=== PATIENT | female | born 1950 | race Caucasian/White ===

== ENCOUNTER 2018-10-02 07:50 | Day surgery (SDC) | payer OTHER, MEDICARE ==
[2018-09-26 14:28] VITALS: BMI 23.6
--- NOTE | 2018-09-28 10:51 | HP ---
Admitting History and Physical - Primary Care Physician PCP: Neville Das - Admission Chief Complaint: right breast cancer History of Present Illness: 68 yeqar old nulliparous postmenapausal Nigerien female with + BRIP1 mutation and H/O left breast cancer S/P wide excision and ANDX at age 50 in [facility]. Pathology showed IDC 1+/11 nodes She received chemotherapy ,RT and tamoxifen. showed new right breast mass 7 mm at 1:00 8 cm FN. US core bx 07/2018 at [facility] showed IDC ER+/MN weakly+ HER2+. Breast MRI showed loclized right breast cancer at 12:00 and no suspicious adenopathy. History Source: Patient Limitations to Obtaining History: No Limitations - Past Medical History ...: No Additional Past Medical History: Left breast cancer 2000 - Past Surgical History Past Surgical History: Yes: Hysterectomy (TAHBSO fibroids at age 46) Additional Past Surgical History: left breast Wide Excision 2.6 cm IDC 1/11 positive node , CHEMORTHERAPY, RT AND TAMOXIFEN 5 YRS. - Smoking History Smoking history: Never smoked Have you smoked in the past 12 months: No - Alcohol/Substance Use Hx Alcohol Use: No Home Medications - Allergies Allergies/Adverse Reactions: Allergies Allergy/AdvReac Type Severity Reaction Status Date / Time Latex, Natural Rubber Allergy Intermediate Rash Verified 09/26/18 14:18 Penicillins Allergy Unknown Verified 09/26/18 14:18 - Home Medications Home Medications: Ambulatory Orders NK [No Known Home Medication] 09/26/18 Family Disease History - Family Disease History Family Disease History: CA: Father (renal cell ca 69), Sister (breast ca 60) Other Family History: pat aunt breast cancer Problem List - Problems (1) Breast cancer, right Code(s): C50.911 - MALIGNANT NEOPLASM OF UNSP SITE OF RIGHT FEMALE BREAST Qualifiers: Breast location: upper inner quadrant of breast Estrogen receptor status: positive Patient sex: female Qualified Code(s): C50.211 - Malignant neoplasm of upper-inner quadrant of right female breast; Z17.0 - Estrogen receptor positive status [ER+]
[~2018-10-02 07:50] MED LIST: BUPIVACAINE HCL/PF 0.25% (2.5MG/ML) 10 ML VIAL IJ ONE
[2018-10-02] MEDS ORDERED: ONDANSETRON 4 MG/2 ML VIAL IVPUSH PRN ×3 (13:41→17:02)
[2018-10-02] MEDS ORDERED: LACTATED RINGERS SOLUTION 1,000 ML IV SCH (13:45)
[2018-10-02] MEDS ORDERED: LIDOCAINE HCL/PF 2% SDV 5ML VIAL ONE (14:23)
[2018-10-02] MEDS ORDERED: PROPOFOL 20 ML ONE (14:23)
[2018-10-02] MEDS ORDERED: MIDAZOLAM HCL 2 MG/2 ML SINGLE DOSE VIAL ONE (14:23)
[2018-10-02] MEDS ORDERED: BUPIVACAINE HCL/PF 2.5 MG/ML - 30 ML VIAL IJ ONE (15:03)
[2018-10-02] MEDS ORDERED: ISOSULFAN BLUE 10 MG/ML VIAL SQ ONE (15:03)
[2018-10-02] MEDS ORDERED: ceFAZolin SODIUM 1 GM VIAL ONE (15:15)
[2018-10-02] MEDS ORDERED: EPHEDRINE SULFATE/0.9% NACL/PF 50 MG/10 ML SYRINGE NR ONE (15:17)
[2018-10-02] MEDS ORDERED: BUPIVACAINE HCL/PF 0.25% (2.5MG/ML) 10 ML VIAL IJ ONE (16:23)
[2018-10-02] MEDS ORDERED: KETOROLAC TROMETHAMINE 30 MG/1 ML VIAL IVPUSH PRN (16:43)
[2018-10-02] MEDS ORDERED: DEXTROSE 5%-0.45% SALINE 1,000 ML IV SCH (16:45)
[2018-10-02] MEDS ORDERED: KETOROLAC TROMETHAMINE 30 MG/1 ML VIAL ONE (16:45)
[2018-10-02] MEDS ORDERED: oxyCODONE HCL 5 MG TABLET PO PRN ×2 (17:02)
[2018-10-02] MEDS ORDERED: PROMETHAZINE HCL 25 MG/1 ML VIAL IVPUSH PRN (17:02)
[2018-10-02] MEDS ORDERED: ONDANSETRON 4 MG/2 ML VIAL ONE (17:17)
[2018-10-02 17:51] VITALS: TEMP 97.5
[2018-10-02 18:24] VITALS: BP 108/54; PULSE 76
--- NOTE | 2018-10-02 20:35 | OP ---
DATE OF OPERATION: 10/02/2018 PREOPERATIVE DIAGNOSIS: Right breast cancer, upper inner quadrant. POSTOPERATIVE DIAGNOSIS: Right breast cancer, upper inner quadrant. PROCEDURE: Right breast partial mastectomy with mammographic needle localization and right axillary sentinel lymph node biopsy with 4 x 5 cm tissue transfer closure. ANESTHESIA: General laryngeal mask airway anesthesia. PRIMARY SURGEON: Cristina Das MD ETIQUETTE TEACHER: RICKY Momin COMPLICATIONS: There were no complications. Briefly, the patient is a 68-year-old, nulliparous, postmenopausal female of [place] descent. She has a family history with her sister who had breast cancer at age 60, and paternal aunt had breast cancer at an unknown age. Her father had renal cell carcinoma. The patient herself was diagnosed with a left breast cancer at age 50 and underwent a partial mastectomy in [facility] for a 2.6 cm infiltrating duct cancer with 1 out of 11 positive nodes, which was ER/MT positive. She received AC chemotherapy and radiation for 5 weeks and took tamoxifen for 5 years. She was doing well until recent mammography on July 04, 2018, showing a new 7-mm density in the right breast 1 o'clock region, 8 cm from the nipple. An ultrasound core biopsy showed a moderately differentiated invasive duct cancer which was ER/MT positive, HER-2 positive. MRI showed this to be localized with no adenopathy. She did undergo genetic testing and did have a BRIP1 mutation. She was advised on undergoing a partial mastectomy and was brought in for the procedure on October 02, 2018. She first went to [facility], where lymphoscintigraphy was performed and a needle localization of the clip in the upper inner aspect of the right breast. She was then brought to the holding area at [place], and in the holding area, site verification was made and informed consent was obtained. She was brought in to the operating room and laid on the OR table in a supine position. Venodynes were placed on the lower extremities prior to induction. She did receive 1 g of Ancef prior to incision. She underwent general laryngeal mask airway anesthesia. Lidocaine 1% was given around the wide excision site and she was injected with 3 mL of Lymphazurin blue, injected around the needle localization site and massage was instituted. The right axillary sentinel lymph node biopsy was first performed. An incision was made just below the hair-bearing area of the right axilla and dissection was undertaken and a blue lymphatic was easily seen coursing to a blue hot lymph node in the level 1 region of the right axilla. There were no hot nodes found and the radioactive tracer did not travel into the axilla. There were no other blue and no hot nodes found, and this 1 node was sent to pathology in formalin and sent as lymph node number 1. Hemostasis was achieved and the axillary wound was closed using interrupted 2-0 plain sutures and interrupted 3-0 deep dermal Vicryl suture and a running 4-0 subcuticular Biosyn suture. At this point, the wide excision was undertaken around the needle localization site around the 1 o'clock region of the right breast. Incision was made in the upper inner aspect of the right breast, and dissection was undertaken around the needle localization wire. The breast tissue was completely removed from around the wire, with the wire intact within the middle of the specimen. The specimen was oriented with a long lateral and short superior suture and specimen radiograph showed removal of the clip in question. At this point, separate margins were taken on the superior, inferior, medial, lateral, deep, and anterior margins, and these were all sent separately to Pathology in formalin as separate margin specimens with a suture marking the biopsy cavity side. Hemostasis was achieved. The breast tissue was undermined to allow for a 5 x 4 cm tissue transfer closure. The breast tissue was reapproximated using 2-0 plain suture. The skin was then closed using interrupted 3-0 deep dermal Vicryl suture and a running 4-0 subcuticular Biosyn suture. Mastisol and Steri-Strips were applied over the wound, a compressive dressing placed over this. She was placed in a surgical bra postoperatively and tolerated the procedure well. All sponge and needle counts were correct at the end of the case and estimated blood loss was about 10 mL. She was hemodynamically stable throughout. The patient will be discharged home the same day, once discharge criteria are met, and is to follow up in the office in 1 week for a formal wound pathology check. CRISTINA DAS M.D. [id number]
[2018-10-03] MEDS ORDERED: HEPARIN NA (PORCINE) 5,000 UNITS/ML 1ML VIAL SQ SCH ×2 (08:00)
--- NOTE | 2018-10-09 09:57 | PATH ---
Surgical Pathology Report Patient Name: XAVIER RADFORD [facility]. Rec. #: [id number] /Age/Gender: 1950 (Age: 68) / F Account: [id number] Location: [facility] Taken: 10/02/2018 Received: 10/02/2018 Reported: 10/09/2018 Physicians: Neville Das M.D. Specimen(s) Received A: AXILLARY SENTINEL LYMPH NODE # 1 B: RIGHT BREAST WIDE EXCISION C: RIGHT BREAST SUPERIOR MARGIN D: RIGHT BREAST INFERIOR MARGIN E: RIGHT BREAST MEDIAL MARGIN F: RIGHT BREAST LATERAL MARGIN G: RIGHT BREAST ANTERIOR MARGIN H: RIGHT BREAST DEEP MARGIN Clinical History Right invasive ductal carcinoma 12:00, moderately differentiated Final Diagnosis A. AXILLARY SENTINEL LYMPH NODE #1, EXCISION: ONE LYMPH NODE, NEGATIVE FOR METASTATIC CARCINOMA (0/1). B. RIGHT BREAST, WIDE EXCISION: INVASIVE DUCTAL CARCINOMA, POORLY DIFFERENTIATED (TUBULE SCORE 3/3, NUCLEAR GRADE: 2/3, MITOTIC SCORE: 3/3, TOTAL SCORE 8/9, CLAUDIA GRADE 3), MEASURING 0.5CM IN GREATEST DIMENSION, MICROSCOPICALLY. DUCTAL CARCINOMA IN SITU (DCIS) PRESENT, HIGH NUCLEAR GRADE, SOLID PATTERN WITH CENTRAL NECROSIS AND CALCIFICATIONS. SURGICAL MARGINS ARE UNINVOLVED BY CARCINOMA. INVASIVE CARCINOMA IS AT 8MM FROM THE CLOSEST (DEEP) MARGIN. DCIS IS AT 1.5MM FROM THE CLOSEST (ANTERIOR) MARGIN. ALSO SEE SPECIMENS C TO H FOR FINAL MARGINS. NO LYMPHOVASCULAR INVASION IS IDENTIFIED. PRIOR BIOPSY SITE WITH REACTIVE CHANGES. PATHOLOGIC STAGE (pTNM): pT1a, pN(sn) 0 SEE ALSO INVASIVE CARCINOMA CASE SUMMARY BELOW. C. RIGHT BREAST SUPERIOR MARGIN, EXCISION: BENIGN FIBROADIPOSE TISSUE. D. RIGHT BREAST INFERIOR MARGIN, EXCISION: BENIGN BREAST TISSUE. E. RIGHT BREAST MEDIAL MARGIN, EXCISION: BENIGN BREAST TISSUE. F. RIGHT BREAST LATERAL MARGIN, EXCISION: BENIGN BREAST TISSUE. G. RIGHT BREAST ANTERIOR MARGIN, EXCISION: BENIGN BREAST TISSUE. H. RIGHT BREAST DEEP MARGIN, EXCISION: BENIGN FIBROADIPOSE TISSUE AND SKELETAL MUSCLE. Comment: Immunohistochemical stains performed and interpreted at [facility] show the following results: smooth muscle myosin heavy chain and p63 show loss of the myoepithelial cell layer in the areas of invasive carcinoma. E-Cadherin shows membranous expression in the tumor cells, supports a ductal phenotype. Comments Breast Invasive Carcinoma: Surgical Pathology Case Summary (Based on AJCC TNM 8 th edition) Procedure _x_ Excision (less than total mastectomy) Specimen Laterality _x_ Right Tumor Size Greatest dimension of largest invasive focus >1 mm (millimeters): 5 mm Histologic Type _x_ Invasive carcinoma of no special type (ductal, not otherwise specified) Histologic Grade (Claudia Histologic Score) Glandular (Acinar)/Tubular Differentiation _x_ Score 3 (<10% of tumor area forming glandular/tubular structures) Nuclear Pleomorphism _x_ Score 2 Mitotic Rate _x_ Score 3 Overall Grade _x_ Grade 3 (scores of 8 or 9) Tumor Focality _x_ Single focus of invasive carcinoma Ductal Carcinoma In Situ (DCIS) _x_ DCIS is present in specimen _x_ Positive for extensive intraductal component (EIC) Size (extent) of DCIS: Estimated size (extent) of DCIS is at least (millimeters): 20mm Number of blocks with DCIS: 5 Number of blocks examined: 16 Margins Invasive Carcinoma Margins _x_ Uninvolved by invasive carcinoma Distance from closest margin (millimeters): 8 mm Closest margin: deep margin. Additional deep margin (specimen H) is negative for carcinoma. DCIS Margins _x_ Uninvolved by DCIS Distance from closest margin (millimeters): >1.5 mm Closest margin: DCIS is at 1.5mm from the closest anterior margin in the wide excision (specimen B). Additional anterior margin (specimen G) is negative for DCIS. Regional Lymph Nodes _x_ Uninvolved by tumor cells Number of Lymph Nodes Examined: 1 Number of Morrison Nodes Examined: 1 Treatment Effect _x_ No known presurgical therapy Lymphovascular Invasion _x_ Not identified Pathologic Stage Classification (pTNM, AJCC 8th Edition) Primary Tumor (Invasive Carcinoma) (pT) _x_ pT1a: Tumor >1 mm but =5 mm in greatest dimension Category (pN) x_ pN0: No regional lymph node metastasis identified or ITCs only Biomarker Studies Results of ER and NV studies performed on this specimen (block# B1) at [facility] are as follows: ER (clone [id number] mouse monoclonal antibody by [employer]): 100% nuclear staining with strong and moderate intensity (positive). NV (clone16 mouse monoclonal antibody by Le[employer]): 0% nuclear staining (negative). Results of Her2 and Ki67 studies will be reported separately in an addendum. Positive and negative controls (internal if applicable) show appropriate results. Formalin fixation and cold ischemic times are within current ASCO/CAP recommendations for ER, NV and Her2 testing. Electronically Signed Robert Worthy M.D. Addendum Reported: 10/11/2018 Addendum Diagnosis Biomarker Studies Results of Her2 (IHC) & Ki-67 studies performed on this specimen (block B1) at [place], [place] ([id number]) interpreted at [facility] are as follows: Her2 IHC (EP3 from [employer], formerly known as [id number], using Jack Polymer Refine detection kit): Positive (3+) Ki-67: ~40% (high proliferative index) Robert Worthy M.D. Gross Description A. Received in formalin, labeled "right axillary sentinel lymph node #1" is a lymph node measuring 0.5 cm in greatest dimension. The specimen is submitted in toto in one cassette. B. Received in formalin, labeled "right breast wide excision, long stitch lateral, short stitch superior" is a 30 grams, 6.5 x 5.0 x 2.1 cm. coyne-yellow, irregular, portion of fibroadipose tissue with a needle localization wire present. There is a short suture marking the superior aspect and a long suture marking the lateral aspect, per the surgeon. There is no skin or nipple present. The specimen is inked as follows: superior red; lateral blue; inferior orange; medial green; anterior yellow; deep black. The specimen is serially sectioned and reveals an ill-defined mass measuring 0.5cm in greatest dimension. The distance from mass to the closest margins (deep/posterior) measures 0.8 cm. The remaining breast parenchyma displays scattered white fibrous tissue. Transport Nurse sections submitted in 6 cassettes as follows. 1. Largest dimension of the mass, with superior and posterior margin. 2. Possible the rest of the mass with superior, inferior, and posterior margin. 3. Tissue adjacent to the mass was superior and posterior margins. 4. Medial margin. 5. Anterior and inferior margin. 6. Lateral margin. Time to formalin fixation: 3 minutes Total formalin fixation time: 9 hours. C. Received in formalin labeled "right breast superior margin", is a 2.4 x 2.0 x 0.4 cm portion of fibroadipose tissue with a suture marked biopsy cavity side, per the surgeon. The new margin is inked blue and the old margin is inked black. The specimen is serially sectioned. The specimen is entirely submitted in 2 cassettes. D. Received in formalin labeled "right breast inferior margin", is a 1.5 x 1.4 x 0.5 cm portion of fibroadipose tissue with a suture marked biopsy cavity side, per the surgeon. The new margin is inked blue. The specimen is serially and entirely submitted in 1 cassette. E. Received in formalin labeled "right breast medial margin", is a 2.0 x 1.5 x 0.5 cm portion of fibroadipose tissue with a suture marked biopsy cavity side, per the surgeon. The new margin is inked blue. The specimen is serially sectioned and entirely submitted in 2 cassettes. F. Received in formalin labeled "right breast lateral margin", is a 2.0 x 2.0 x 0.4 cm portion of fibroadipose tissue with a suture marked biopsy cavity side, per the surgeon. The new margin is inked blue. The specimen is serially sectioned and entirely submitted in 2 cassettes. G. Received in formalin labeled "right breast anterior margin", is a 2.0 x 1.8 x 0.9 cm portion of fibroadipose tissue with a suture marked biopsy cavity side, per the surgeon. The new margin is inked blue. The specimen is serially sectioned and entirely submitted in 2 cassettes. H. Received in formalin labeled "right breast deep margin", is a 1.3 x 1.0 x 0.4 cm portion of fibroadipose tissue with a suture marked biopsy cavity side, per the surgeon. The new margin is inked blue. The specimen is serially sectioned and entirely submitted in 1 cassette. _ KWS/10/04/2018 trini/10/04/2018
== END 2018-10-02 18:35 | disposition home or self-care (01) ==
LOC: FASU 07:50
PROVIDERS: ATTEND Surgery Surgical Oncology
PROC: 0HBT0ZZ Excision of Right Breast, Open Approach (ICD-10-PCS; principal; 2018-10-02 15:26)
PROC: 0JX60ZC Transfer Chest Subcutaneous Tissue and Fascia with Skin, Subcutaneous Tissue and Fascia, Open Approach (ICD-10-PCS; 2018-10-02 15:26)
DX: C50.211 Malignant neoplasm of upper-inner quadrant of right female breast (principal); Z17.0 Estrogen receptor positive status [ER+]
CPT/HCPCS: 19281; 78195-TC; 88307-TC; 88341-TC; 88342-TC; 94760; A9541

== ENCOUNTER 2018-11-06 08:29 | Day surgery (SDC) | payer OTHER, MEDICARE ==
[2018-11-05 08:29] VITALS: BMI 24.0
[2018-11-06 08:59] VITALS: TEMP 97.8
[2018-11-06] MEDS ORDERED: levoFLOXacin 250 MG IVPB 500 MG/100 ML MG IVPB ONE (10:00)
[2018-11-06] MEDS ORDERED: MIDAZOLAM HCL 2 MG/2 ML SINGLE DOSE VIAL ONE (10:42)
[2018-11-06 12:22] VITALS: PULSE 72
[2018-11-06 13:12] VITALS: BP 116/67
== END 2018-11-06 13:13 | disposition home or self-care (01) ==
LOC: JRADIR 08:29
PROVIDERS: ATTEND Internal Medicine Hematology & Oncology
PROC: 0JH63XZ Insertion of Tunneled Vascular Access Device into Chest Subcutaneous Tissue and Fascia, Percutaneous Approach (ICD-10-PCS; principal; 2018-11-06)
PROC: 02HV33Z Insertion of Infusion Device into Superior Vena Cava, Percutaneous Approach (ICD-10-PCS; 2018-11-06)
PROC: B518ZZA Fluoroscopy of Superior Vena Cava, Guidance (ICD-10-PCS; 2018-11-06)
DX: C50.919 Malignant neoplasm of unspecified site of unspecified female breast (principal)
CPT/HCPCS: 36561; 77001; C1751; C1788

== ENCOUNTER 2018-11-07 05:43 | Day surgery (SDC) | payer OTHER, MEDICARE ==
[2018-11-07] MEDS ORDERED: FAMOTIDINE 20 MG/50 ML IVPB 20 MG/50 ML MG IVPB ONE (09:30)
[2018-11-07] MEDS ORDERED: DEXAMETHASONE SODIUM PHOSPHATE IVPB ONE (09:30)
[2018-11-07] MEDS ORDERED: ONDANSETRON IVPB ONE (09:30)
[2018-11-07] MEDS ORDERED: ACETAMINOPHEN 325 MG TABLET (FP) PO ONE (09:30)
[2018-11-07] MEDS ORDERED: [UNRECOGNIZED DRUG - OTHER] IVPB ONE (09:30)
[2018-11-07] MEDS ORDERED: TRASTUZUMAB IVPB ONE (10:00)
[2018-11-07] MEDS ORDERED: SODIUM CHLORIDE IVPB ONE (10:00)
[2018-11-07] MEDS ORDERED: SODIUM CHLORIDE 250 ML IV SCH (11:00)
[2018-11-07] MEDS ORDERED: PACLITAXEL 126 MG in SODIUM CHLORIDE 250 ML IVPB ONE (11:30)
[2018-11-07] MEDS ORDERED: DEXAMETHASONE SODIUM PHOSPHATE 10 MG, ONDANSETRON INJECTION 8 MG, DIPHENHYDRAMINE 25 MG... IVPB ONE (12:00)
[2018-11-07 12:10] LABS: BASO % 0.6 % (0-2.0); EOS % 5.9 % (0-4.5); HEMATOCRIT 37.8 % (32.4-45.2); HEMOGLOBIN 12.4 GM/dL (10.7-15.3); LYMPH % 28.6 % (8-40); MCH 30.5 pg (25.7-33.7); MCHC 32.7 g/dl (32.0-36.0); MEAN CELL VOLUME 93.3 fl (80-96); MEAN PLT VOLUME 8.6 fl (7.5-11.1); MONO % 5.7 % (3.8-10.2); NEUT % 59.2 % (42.8-82.8); PLATELET COUNT 200 K/MM3 (134-434); RBC 4.05 M/mm3 (3.60-5.2); RDW 14.1 % (11.6-15.6); WHITE BLOOD COUNT 7.4 K/mm3 (4.0-10.0)
[2018-11-07 12:29] LABS: ALBUMIN 3.6 g/dl (3.4-5.0); BILIRUBIN,TOTAL 0.5 mg/dL (0.2-1); BLOOD UREA NITROGEN 9.9 mg/dL (7-18); CREATININE 0.6 mg/dL (0.55-1.3); POTASSIUM 3.9 mmol/L (3.5-5.1); TOT PROT 6.3 g/dl (6.4-8.2)
[2018-11-07] MEDS ORDERED: DEXAMETHASONE INJECTION 10 MG in SODIUM CHLORIDE 50 ML IVPB ONE (12:30)
[2018-11-07 18:02] VITALS: PULSE 76; TEMP 97.8
[2018-11-07] MEDS ORDERED: PORTA CATH FLUSH 10 ML IVPUSH ONE (18:02)
[2018-11-07 18:03] VITALS: BP 109/61
== END 2018-11-07 17:30 | disposition home or self-care (01) ==
LOC: JONCCHEMO 05:43 → J7W 09:43 → JONCCHEMO 17:30
PROVIDERS: ATTEND Internal Medicine Hematology & Oncology
DX: Z51.11 Encounter for antineoplastic chemotherapy (principal); C50.919 Malignant neoplasm of unspecified site of unspecified female breast
CPT/HCPCS: 36415; 80053; 85025; 96361; 96366; 96367; 96375; 96413; 96415; 96417; J1100; J2405; J7030; J9355

== ENCOUNTER 2018-11-14 07:08 | Day surgery (SDC) | payer OTHER, MEDICARE ==
[2018-11-14] MEDS ORDERED: DEXAMETHASONE SODIUM PHOSPHATE 10 MG, ONDANSETRON INJECTION 8 MG, DIPHENHYDRAMINE 25 MG... IVPB ONE (09:30)
[2018-11-14] MEDS ORDERED: FAMOTIDINE 20 MG/50 ML IVPB 20 MG/50 ML MG IVPB ONE (09:30)
[2018-11-14] MEDS ORDERED: ACETAMINOPHEN 325 MG TABLET (FP) PO ONE (09:30)
[2018-11-14] MEDS ORDERED: TRASTUZUMAB IVPB ONE (10:00)
[2018-11-14] MEDS ORDERED: SODIUM CHLORIDE IVPB ONE (10:00)
[2018-11-14] MEDS ORDERED: PACLITAXEL 126 MG in SODIUM CHLORIDE 250 ML IVPB ONE (10:30)
[2018-11-14 11:18] LABS: BASO % 0.8 % (0-2.0); EOS % 6.4 % (0-4.5); HEMATOCRIT 36.2 % (32.4-45.2); HEMOGLOBIN 11.8 GM/dL (10.7-15.3); LYMPH % 30.1 % (8-40); MCH 30.5 pg (25.7-33.7); MCHC 32.6 g/dl (32.0-36.0); MEAN CELL VOLUME 93.6 fl (80-96); MEAN PLT VOLUME 9.1 fl (7.5-11.1); MONO % 2.9 % (3.8-10.2); NEUT % 59.8 % (42.8-82.8); PLATELET COUNT 179 K/MM3 (134-434); RBC 3.87 M/mm3 (3.60-5.2); RDW 14.3 % (11.6-15.6)
[2018-11-14 11:54] LABS: ALBUMIN 3.4 g/dl (3.4-5.0); BILIRUBIN,TOTAL 0.4 mg/dL (0.2-1); BLOOD UREA NITROGEN 18.7 mg/dL (7-18); CALCIUM 8.7 mg/dL (8.5-10.1); CREATININE 0.7 mg/dL (0.55-1.3); POTASSIUM 4.3 mmol/L (3.5-5.1); TOT PROT 6.2 g/dl (6.4-8.2)
[2018-11-14 16:36] VITALS: BP 126/68; PULSE 74; TEMP 98.3
[2018-11-14] MEDS ORDERED: PORTA CATH FLUSH 10 ML IVPUSH ONE (16:36)
== END 2018-11-14 14:30 | disposition home or self-care (01) ==
LOC: JONCCHEMO 07:08 → J7W 10:45 → JONCCHEMO 14:30
PROVIDERS: ATTEND Internal Medicine Hematology & Oncology
DX: Z51.11 Encounter for antineoplastic chemotherapy (principal); C50.919 Malignant neoplasm of unspecified site of unspecified female breast
CPT/HCPCS: 36415; 80053; 83735; 85025; 96367; 96375; 96413; 96415; 96417; J2405; J9355

== ENCOUNTER 2018-11-21 07:05 | Day surgery (SDC) | payer OTHER, MEDICARE ==
[2018-11-21] MEDS ORDERED: DEXAMETHASONE SODIUM PHOSPHATE 10 MG, ONDANSETRON INJECTION 8 MG, DIPHENHYDRAMINE 25 MG... IVPB ONE (09:30)
[2018-11-21] MEDS ORDERED: ACETAMINOPHEN 325 MG TABLET (FP) PO ONE (09:30)
[2018-11-21] MEDS ORDERED: FAMOTIDINE 20 MG/50 ML IVPB 20 MG/50 ML MG IVPB ONE (09:30)
[2018-11-21] MEDS ORDERED: TRASTUZUMAB IVPB ONE (10:00)
[2018-11-21] MEDS ORDERED: SODIUM CHLORIDE IVPB ONE (10:00)
[2018-11-21] MEDS ORDERED: PACLITAXEL 126 MG in SODIUM CHLORIDE 250 ML IVPB ONE (10:30)
[2018-11-21 12:59] LABS: BASO % 1.1 % (0-2.0); EOS % 5.7 % (0-4.5); HEMOGLOBIN 11.4 GM/dL (10.7-15.3); MCH 30.5 pg (25.7-33.7); MCHC 32.6 g/dl (32.0-36.0); MEAN CELL VOLUME 93.6 fl (80-96); MEAN PLT VOLUME 8.9 fl (7.5-11.1); MONO % 3.7 % (3.8-10.2); NEUT % 47.5 % (42.8-82.8); PLATELET COUNT 205 K/MM3 (134-434); RBC 3.74 M/mm3 (3.60-5.2); RDW 14.3 % (11.6-15.6); WHITE BLOOD COUNT 4.6 K/mm3 (4.0-10.0)
[2018-11-21 13:32] LABS: ALBUMIN 3.5 g/dl (3.4-5.0); BILIRUBIN,TOTAL 0.3 mg/dL (0.2-1); BLOOD UREA NITROGEN 15.4 mg/dL (7-18); CALCIUM 8.8 mg/dL (8.5-10.1); CREATININE 0.6 mg/dL (0.55-1.3); POTASSIUM 4.4 mmol/L (3.5-5.1); TOT PROT 6.1 g/dl (6.4-8.2)
[2018-11-21 16:34] VITALS: TEMP 97.9
[2018-11-21] MEDS ORDERED: PORTA CATH FLUSH 10 ML IVPUSH ONE (16:34)
[2018-11-21 17:08] VITALS: BP 125/72; PULSE 67
== END 2018-11-21 17:17 | disposition home or self-care (01) ==
LOC: JONCCHEMO 07:05 → J7W 11:49 → JONCCHEMO 17:17
PROVIDERS: ATTEND Internal Medicine Hematology & Oncology
PROC: 3E04305 Introduction of Other Antineoplastic into Central Vein, Percutaneous Approach (ICD-10-PCS; principal; 2018-11-21)
PROC: 3E043GC Introduction of Other Therapeutic Substance into Central Vein, Percutaneous Approach (ICD-10-PCS; 2018-11-21)
DX: Z51.11 Encounter for antineoplastic chemotherapy (principal); C50.919 Malignant neoplasm of unspecified site of unspecified female breast; M19.90 Unspecified osteoarthritis, unspecified site; M81.0 Age-related osteoporosis without current pathological fracture
CPT/HCPCS: 36415; 80053; 83735; 84439; 84443; 85025; 96367; 96375; 96413; 96417; J2405; J9355

== ENCOUNTER 2018-11-29 05:28 | Day surgery (SDC) | payer OTHER, MEDICARE ==
[2018-11-29] MEDS ORDERED: DEXAMETHASONE SODIUM PHOSPHATE 8 MG, ONDANSETRON INJECTION 8 MG, DIPHENHYDRAMINE 25 MG ... IVPB ONE (09:30)
[2018-11-29] MEDS ORDERED: FAMOTIDINE 20 MG/50 ML IVPB 20 MG/50 ML MG IVPB ONE (09:30)
[2018-11-29] MEDS ORDERED: ACETAMINOPHEN 325 MG TABLET (FP) PO ONE (09:30)
[2018-11-29] MEDS ORDERED: SODIUM CHLORIDE IVPB ONE (10:00)
[2018-11-29] MEDS ORDERED: TRASTUZUMAB IVPB ONE (10:00)
[2018-11-29] MEDS ORDERED: PACLITAXEL 126 MG in SODIUM CHLORIDE 250 ML IVPB ONE (10:30)
[2018-11-29 12:51] LABS: BASO % 1.7 % (0-2.0); EOS % 3.9 % (0-4.5); HEMATOCRIT 38.4 % (32.4-45.2); HEMOGLOBIN 12.3 GM/dL (10.7-15.3); LYMPH % 44.3 % (8-40); MCH 30.8 pg (25.7-33.7); MCHC 32.2 g/dl (32.0-36.0); MEAN CELL VOLUME 95.7 fl (80-96); MEAN PLT VOLUME 8.9 fl (7.5-11.1); MONO % 6.2 % (3.8-10.2); NEUT % 43.9 % (42.8-82.8); PLATELET COUNT 260 K/MM3 (134-434); RBC 4.01 M/mm3 (3.60-5.2); RDW 15.3 % (11.6-15.6); WHITE BLOOD COUNT 4.5 K/mm3 (4.0-10.0)
[2018-11-29 13:18] LABS: ANISOCYTOSIS 0; MACROCYTOSIS 0; PLATELET ESTIMATE NORMAL
[2018-11-29 13:42] LABS: ALBUMIN 3.8 g/dl (3.4-5.0); BILIRUBIN,TOTAL 0.2 mg/dL (0.2-1); BLOOD UREA NITROGEN 21.5 mg/dL (7-18); CALCIUM 8.9 mg/dL (8.5-10.1); CREATININE 0.7 mg/dL (0.55-1.3); POTASSIUM 4.4 mmol/L (3.5-5.1); TOT PROT 6.7 g/dl (6.4-8.2)
[2018-11-29 16:33] VITALS: TEMP 97.8
[2018-11-29] MEDS ORDERED: PORTA CATH FLUSH 10 ML IVPUSH ONE (16:33)
[2018-11-29 17:23] VITALS: BP 123/75; PULSE 67
== END 2018-11-29 17:23 | disposition home or self-care (01) ==
LOC: JONCCHEMO 05:28 → J7W 11:52 → JONCCHEMO 17:23
PROVIDERS: ATTEND Internal Medicine Hematology & Oncology
DX: Z51.11 Encounter for antineoplastic chemotherapy (principal); C50.919 Malignant neoplasm of unspecified site of unspecified female breast; M19.90 Unspecified osteoarthritis, unspecified site; M81.0 Age-related osteoporosis without current pathological fracture
CPT/HCPCS: 36415; 80053; 82607; 82728; 82747; 83540; 83550; 83735; 85014; 85025; 96367; 96413; 96417; J2405; J9355

== ENCOUNTER 2018-12-06 05:24 | Day surgery (SDC) | payer OTHER, MEDICARE ==
[2018-12-06] MEDS ORDERED: FAMOTIDINE 20 MG/50 ML IVPB 20 MG/50 ML MG IVPB ONE (10:00)
[2018-12-06] MEDS ORDERED: DEXAMETHASONE SODIUM PHOSPHATE 8 MG, ONDANSETRON INJECTION 8 MG, DIPHENHYDRAMINE 25 MG ... IVPB ONE (10:00)
[2018-12-06] MEDS ORDERED: ACETAMINOPHEN 325 MG TABLET (FP) PO ONE (10:00)
[2018-12-06] MEDS ORDERED: PACLITAXEL 126 MG in SODIUM CHLORIDE 250 ML IVPB ONE (10:30)
[2018-12-06] MEDS ORDERED: TRASTUZUMAB IVPB ONE (11:30)
[2018-12-06] MEDS ORDERED: SODIUM CHLORIDE IVPB ONE (11:30)
[2018-12-06 12:39] LABS: BASO % 2.1 % (0-2.0); EOS % 3.1 % (0-4.5); HEMATOCRIT 37.6 % (32.4-45.2); HEMOGLOBIN 12.1 GM/dL (10.7-15.3); LYMPH % 41.1 % (8-40); MCH 30.6 pg (25.7-33.7); MCHC 32.1 g/dl (32.0-36.0); MEAN CELL VOLUME 95.5 fl (80-96); MEAN PLT VOLUME 9.2 fl (7.5-11.1); MONO % 4.4 % (3.8-10.2); NEUT % 49.3 % (42.8-82.8); PLATELET COUNT 212 K/MM3 (134-434); RBC 3.94 M/mm3 (3.60-5.2); RDW 15.5 % (11.6-15.6); WHITE BLOOD COUNT 4.4 K/mm3 (4.0-10.0)
[2018-12-06 13:02] LABS: ALBUMIN 3.5 g/dl (3.4-5.0); BILIRUBIN,TOTAL 0.4 mg/dL (0.2-1); BLOOD UREA NITROGEN 9.6 mg/dL (7-18); CALCIUM 8.6 mg/dL (8.5-10.1); CREATININE 0.7 mg/dL (0.55-1.3); POTASSIUM 4.2 mmol/L (3.5-5.1); TOT PROT 6.2 g/dl (6.4-8.2)
[2018-12-06 16:12] VITALS: BP 120/68; PULSE 72; TEMP 97.9
[2018-12-06] MEDS ORDERED: PORTA CATH FLUSH 10 ML IVPUSH ONE (16:12)
== END 2018-12-06 16:00 | disposition home or self-care (01) ==
LOC: JONCCHEMO 05:24 → J7W 11:47 → JONCCHEMO 16:00
PROVIDERS: ATTEND Internal Medicine Hematology & Oncology
PROC: 3E04305 Introduction of Other Antineoplastic into Central Vein, Percutaneous Approach (ICD-10-PCS; principal; 2018-12-06)
PROC: 3E043GC Introduction of Other Therapeutic Substance into Central Vein, Percutaneous Approach (ICD-10-PCS; 2018-12-06)
DX: Z51.11 Encounter for antineoplastic chemotherapy (principal); C50.919 Malignant neoplasm of unspecified site of unspecified female breast; M81.0 Age-related osteoporosis without current pathological fracture; M19.90 Unspecified osteoarthritis, unspecified site
CPT/HCPCS: 36415; 80053; 83735; 85025; 96367; 96413; 96417; J2405; J9355

== ENCOUNTER 2018-12-13 07:10 | Day surgery (SDC) | payer OTHER, MEDICARE ==
[2018-12-13] MEDS ORDERED: DIPHENHYDRAMINE IVPB ONE (10:00)
[2018-12-13] MEDS ORDERED: DEXAMETHASONE SODIUM PHOSPHATE IVPB ONE (10:00)
[2018-12-13] MEDS ORDERED: [UNRECOGNIZED DRUG - OTHER] IVPB ONE (10:00)
[2018-12-13] MEDS ORDERED: FAMOTIDINE 20 MG/50 ML IVPB 20 MG/50 ML MG IVPB ONE (10:00)
[2018-12-13] MEDS ORDERED: ACETAMINOPHEN 325 MG TABLET (FP) PO ONE (10:00)
[2018-12-13] MEDS ORDERED: TRASTUZUMAB IVPB ONE (10:30)
[2018-12-13] MEDS ORDERED: SODIUM CHLORIDE IVPB ONE (10:30)
[2018-12-13] MEDS ORDERED: PACLITAXEL 126 MG in SODIUM CHLORIDE 250 ML IVPB ONE (11:00)
[2018-12-13 13:27] LABS: BASO % 1.9 % (0-2.0); EOS % 3.9 % (0-4.5); HEMATOCRIT 36.6 % (32.4-45.2); HEMOGLOBIN 11.7 GM/dL (10.7-15.3); LYMPH % 39.1 % (8-40); MCH 30.8 pg (25.7-33.7); MCHC 31.9 g/dl (32.0-36.0); MEAN CELL VOLUME 96.5 fl (80-96); MEAN PLT VOLUME 8.6 fl (7.5-11.1); NEUT % 51.1 % (42.8-82.8); PLATELET COUNT 219 K/MM3 (134-434); RBC 3.79 M/mm3 (3.60-5.2); RDW 16.3 % (11.6-15.6); WHITE BLOOD COUNT 4.4 K/mm3 (4.0-10.0)
[2018-12-13 14:03] LABS: ALBUMIN 3.6 g/dl (3.4-5.0); BILIRUBIN,TOTAL 0.3 mg/dL (0.2-1); BLOOD UREA NITROGEN 11.2 mg/dL (7-18); CALCIUM 8.4 mg/dL (8.5-10.1); CREATININE 0.7 mg/dL (0.55-1.3); MAGNESIUM 2.1 mg/dL (1.8-2.4); POTASSIUM 4.3 mmol/L (3.5-5.1); TOT PROT 6.2 g/dl (6.4-8.2)
[2018-12-13 17:16] VITALS: TEMP 98.8
[2018-12-13 18:05] VITALS: BP 124/70; PULSE 67
[2018-12-13] MEDS ORDERED: PORTA CATH FLUSH 10 ML IVPUSH ONE (18:05)
== END 2018-12-13 18:06 | disposition home or self-care (01) ==
LOC: JONCCHEMO 07:10 → J7W 12:09 → JONCCHEMO 18:06
PROVIDERS: ATTEND Internal Medicine Hematology & Oncology
DX: Z51.11 Encounter for antineoplastic chemotherapy (principal); C50.919 Malignant neoplasm of unspecified site of unspecified female breast; M81.0 Age-related osteoporosis without current pathological fracture; M19.90 Unspecified osteoarthritis, unspecified site
CPT/HCPCS: 36415; 80053; 83735; 85025; 96367; 96375; 96413; 96417; J9355

== ENCOUNTER 2018-12-20 07:17 | Day surgery (SDC) | payer OTHER, MEDICARE ==
[2018-12-20 09:04] VITALS: TEMP 97.9
[2018-12-20] MEDS ORDERED: ACETAMINOPHEN 325 MG TABLET (FP) PO ONE (10:00)
[2018-12-20] MEDS ORDERED: DEXAMETHASONE SODIUM PHOSPHATE IVPB ONE (10:00)
[2018-12-20] MEDS ORDERED: FAMOTIDINE 20 MG/50 ML IVPB 20 MG/50 ML MG IVPB ONE (10:00)
[2018-12-20] MEDS ORDERED: DIPHENHYDRAMINE IVPB ONE (10:00)
[2018-12-20] MEDS ORDERED: [UNRECOGNIZED DRUG - OTHER] IVPB ONE (10:00)
[2018-12-20] MEDS ORDERED: SODIUM CHLORIDE IVPB ONE (10:30)
[2018-12-20] MEDS ORDERED: TRASTUZUMAB IVPB ONE (10:30)
[2018-12-20] MEDS ORDERED: PACLITAXEL 126 MG in SODIUM CHLORIDE 250 ML IVPB ONE (11:00)
[2018-12-20 11:55] LABS: BASO % 2.2 % (0-2.0); HEMATOCRIT 34.8 % (32.4-45.2); HEMOGLOBIN 11.4 GM/dL (10.7-15.3); MCH 31.2 pg (25.7-33.7); MCHC 32.9 g/dl (32.0-36.0); MEAN CELL VOLUME 94.8 fl (80-96); MEAN PLT VOLUME 9.1 fl (7.5-11.1); MONO % 4.8 % (3.8-10.2); PLATELET COUNT 205 K/MM3 (134-434); RBC 3.67 M/mm3 (3.60-5.2); RDW 15.9 % (11.6-15.6); WHITE BLOOD COUNT 3.8 K/mm3 (4.0-10.0)
[2018-12-20 12:23] LABS: ALBUMIN 3.6 g/dl (3.4-5.0); BILIRUBIN,TOTAL 0.5 mg/dL (0.2-1); BLOOD UREA NITROGEN 7.2 mg/dL (7-18); CREATININE 0.7 mg/dL (0.55-1.3); MAGNESIUM 1.9 mg/dL (1.8-2.4); POTASSIUM 4.1 mmol/L (3.5-5.1); TOT PROT 6.2 g/dl (6.4-8.2)
[2018-12-20] MEDS ORDERED: PORTA CATH FLUSH 10 ML IVPUSH ONE (16:40)
[2018-12-20 16:41] VITALS: BP 117/69; PULSE 81
== END 2018-12-20 16:15 | disposition home or self-care (01) ==
LOC: JONCCHEMO 07:17 → J7W 10:55 → JONCCHEMO 16:15
PROVIDERS: ATTEND Internal Medicine Hematology & Oncology
DX: Z51.11 Encounter for antineoplastic chemotherapy (principal); C50.919 Malignant neoplasm of unspecified site of unspecified female breast; M81.0 Age-related osteoporosis without current pathological fracture; M19.90 Unspecified osteoarthritis, unspecified site
CPT/HCPCS: 36415; 80053; 83735; 85025; 96367; 96413; 96417; J9355

== ENCOUNTER 2018-12-27 07:02 | Day surgery (SDC) | payer OTHER, MEDICARE ==
[2018-12-27] MEDS ORDERED: ACETAMINOPHEN 325 MG TABLET (FP) PO ONE (10:00)
[2018-12-27] MEDS ORDERED: [UNRECOGNIZED DRUG - OTHER] IVPB ONE (10:00)
[2018-12-27] MEDS ORDERED: DEXAMETHASONE SODIUM PHOSPHATE IVPB ONE (10:00)
[2018-12-27] MEDS ORDERED: DIPHENHYDRAMINE IVPB ONE (10:00)
[2018-12-27] MEDS ORDERED: FAMOTIDINE 20 MG/50 ML IVPB 20 MG/50 ML MG IVPB ONE (10:00)
[2018-12-27] MEDS ORDERED: TRASTUZUMAB ANNS IVPB ONE (10:30)
[2018-12-27] MEDS ORDERED: SODIUM CHLORIDE IVPB ONE (10:30)
[2018-12-27 10:56] LABS: BASO % 2.4 % (0-2.0); HEMATOCRIT 33.3 % (32.4-45.2); HEMOGLOBIN 10.9 GM/dL (10.7-15.3); LYMPH % 36.2 % (8-40); MCH 30.9 pg (25.7-33.7); MCHC 32.8 g/dl (32.0-36.0); MEAN CELL VOLUME 94.2 fl (80-96); MEAN PLT VOLUME 8.7 fl (7.5-11.1); MONO % 5.5 % (3.8-10.2); NEUT % 50.9 % (42.8-82.8); PLATELET COUNT 227 K/MM3 (134-434); RBC 3.53 M/mm3 (3.60-5.2); RDW 15.7 % (11.6-15.6); WHITE BLOOD COUNT 3.7 K/mm3 (4.0-10.0)
[2018-12-27] MEDS ORDERED: PACLITAXEL 126 MG in SODIUM CHLORIDE 250 ML IVPB ONE (11:00)
[2018-12-27 11:31] LABS: ALBUMIN 3.6 g/dl (3.4-5.0); BILIRUBIN,TOTAL 0.2 mg/dL (0.2-1); BLOOD UREA NITROGEN 17.3 mg/dL (7-18); CALCIUM 8.8 mg/dL (8.5-10.1); CREATININE 0.7 mg/dL (0.55-1.3); POTASSIUM 4.4 mmol/L (3.5-5.1)
[2018-12-27] MEDS ORDERED: PORTA CATH FLUSH 10 ML IVPUSH ONE (16:30)
[2018-12-27 16:32] VITALS: BP 127/60; PULSE 98; TEMP 98.4
== END 2018-12-27 15:25 | disposition home or self-care (01) ==
LOC: JONCCHEMO 07:02 → J7W 10:09 → JONCCHEMO 15:25
PROVIDERS: ATTEND Internal Medicine Hematology & Oncology
DX: Z51.11 Encounter for antineoplastic chemotherapy (principal); C50.919 Malignant neoplasm of unspecified site of unspecified female breast; M81.0 Age-related osteoporosis without current pathological fracture; M19.90 Unspecified osteoarthritis, unspecified site
CPT/HCPCS: 36415; 80053; 83735; 85025; 96367; 96413; 96417; Q5117

== ENCOUNTER 2019-01-04 05:38 | Day surgery (SDC) | payer OTHER, MEDICARE ==
[2019-01-04] MEDS ORDERED: DEXAMETHASONE SODIUM PHOSPHATE 8 MG, ONDANSETRON INJECTION 8 MG, DIPHENHYDRAMINE 25 MG ... IVPB ONE (09:30)
[2019-01-04] MEDS ORDERED: ACETAMINOPHEN 325 MG TABLET (FP) PO ONE (09:30)
[2019-01-04] MEDS ORDERED: FAMOTIDINE 20 MG/50 ML IVPB 20 MG/50 ML MG IVPB ONE (09:30)
[2019-01-04] MEDS ORDERED: SODIUM CHLORIDE IVPB ONE (10:00)
[2019-01-04] MEDS ORDERED: TRASTUZUMAB ANNS IVPB ONE (10:00)
[2019-01-04] MEDS ORDERED: PACLITAXEL 126 MG in SODIUM CHLORIDE 250 ML IVPB ONE (10:30)
[2019-01-04 10:54] LABS: BASO % 1.8 % (0-2.0); EOS % 5.3 % (0-4.5); HEMATOCRIT 32.4 % (32.4-45.2); HEMOGLOBIN 10.8 GM/dL (10.7-15.3); MCH 31.8 pg (25.7-33.7); MCHC 33.3 g/dl (32.0-36.0); MEAN CELL VOLUME 95.6 fl (80-96); MEAN PLT VOLUME 8.6 fl (7.5-11.1); MONO % 6.8 % (3.8-10.2); NEUT % 58.1 % (42.8-82.8); PLATELET COUNT 226 K/MM3 (134-434); RBC 3.38 M/mm3 (3.60-5.2); RDW 16.6 % (11.6-15.6)
[2019-01-04 11:26] LABS: ALBUMIN 3.2 g/dl (3.4-5.0); BILIRUBIN,TOTAL 0.2 mg/dL (0.2-1); BLOOD UREA NITROGEN 14.9 mg/dL (7-18); CALCIUM 8.4 mg/dL (8.5-10.1); CREATININE 0.6 mg/dL (0.55-1.3); POTASSIUM 4.3 mmol/L (3.5-5.1); TOT PROT 5.7 g/dl (6.4-8.2)
[2019-01-04 12:28] LABS: ANISOCYTOSIS 2+; MACROCYTOSIS 1+; PLATELET ESTIMATE NORMAL
[2019-01-04 15:53] VITALS: TEMP 98.6
[2019-01-04 15:54] VITALS: BP 121/64; PULSE 77
== END 2019-01-04 14:45 | disposition home or self-care (01) ==
LOC: JONCCHEMO 05:38 → J7W 10:12 → JONCCHEMO 14:45
PROVIDERS: ATTEND Internal Medicine Hematology & Oncology
DX: Z51.11 Encounter for antineoplastic chemotherapy (principal); C50.919 Malignant neoplasm of unspecified site of unspecified female breast; M81.0 Age-related osteoporosis without current pathological fracture; M19.90 Unspecified osteoarthritis, unspecified site
CPT/HCPCS: 36415; 80053; 82728; 83540; 83550; 85025; 96367; 96413; 96417; J2405; Q5117

== ENCOUNTER 2019-01-10 05:34 | Day surgery (SDC) | payer OTHER, MEDICARE ==
[2019-01-10] MEDS ORDERED: DEXAMETHASONE SODIUM PHOSPHATE 8 MG, ONDANSETRON INJECTION 8 MG, DIPHENHYDRAMINE 25 MG ... IVPB ONE (09:30)
[2019-01-10] MEDS ORDERED: FAMOTIDINE 20 MG/50 ML IVPB 20 MG/50 ML MG IVPB ONE (09:30)
[2019-01-10] MEDS ORDERED: ACETAMINOPHEN 325 MG TABLET (FP) PO ONE (09:30)
[2019-01-10] MEDS ORDERED: TRASTUZUMAB ANNS IVPB ONE (10:00)
[2019-01-10] MEDS ORDERED: SODIUM CHLORIDE IVPB ONE (10:00)
[2019-01-10] MEDS ORDERED: PACLITAXEL 126 MG in SODIUM CHLORIDE 250 ML IVPB ONE (10:30)
[2019-01-10] MEDS ORDERED: ONDANSETRON 4 MG/2 ML VIAL IVPB ONE (12:12)
[2019-01-10] MEDS ORDERED: DEXAMETHASONE SOD PHOSPHATE 4 MG/1 ML VIAL IVPB ONE (13:00)
[2019-01-10 13:22] LABS: BASO % 2.3 % (0-2.0); HEMATOCRIT 34.1 % (32.4-45.2); HEMOGLOBIN 11.2 GM/dL (10.7-15.3); LYMPH % 38.5 % (8-40); MCH 31.4 pg (25.7-33.7); MEAN CELL VOLUME 95.3 fl (80-96); MEAN PLT VOLUME 8.9 fl (7.5-11.1); MONO % 4.5 % (3.8-10.2); NEUT % 47.7 % (42.8-82.8); PLATELET COUNT 216 K/MM3 (134-434); RBC 3.58 M/mm3 (3.60-5.2); RDW 16.2 % (11.6-15.6); WHITE BLOOD COUNT 3.5 K/mm3 (4.0-10.0)
[2019-01-10 13:54] LABS: ALBUMIN 3.7 g/dl (3.4-5.0); BILIRUBIN,TOTAL 0.3 mg/dL (0.2-1); BLOOD UREA NITROGEN 13.2 mg/dL (7-18); CALCIUM 8.9 mg/dL (8.5-10.1); CREATININE 0.6 mg/dL (0.55-1.3); MAGNESIUM 2.1 mg/dL (1.8-2.4); POTASSIUM 4.2 mmol/L (3.5-5.1); TOT PROT 6.3 g/dl (6.4-8.2)
[2019-01-10] MEDS ORDERED: PORTA CATH FLUSH 10 ML IVPUSH ONE (18:16)
[2019-01-10 18:17] VITALS: BP 128/75; PULSE 86; TEMP 98.3
== END 2019-01-10 18:15 | disposition home or self-care (01) ==
LOC: JONCCHEMO 05:34 → J7W 12:44 → JONCCHEMO 18:15
PROVIDERS: ATTEND Internal Medicine Hematology & Oncology
DX: Z51.11 Encounter for antineoplastic chemotherapy (principal); C50.919 Malignant neoplasm of unspecified site of unspecified female breast; M81.0 Age-related osteoporosis without current pathological fracture
CPT/HCPCS: 36415; 80053; 82728; 83540; 83550; 83735; 85025; 96367; 96413; 96417; Q5117

== ENCOUNTER 2019-01-17 07:10 | Day surgery (SDC) | payer OTHER, MEDICARE ==
[2019-01-17] MEDS ORDERED: DEXAMETHASONE SODIUM PHOSPHATE IVPB ONE (09:30)
[2019-01-17] MEDS ORDERED: FAMOTIDINE 20 MG/50 ML IVPB 20 MG/50 ML MG IVPB ONE (09:30)
[2019-01-17] MEDS ORDERED: ACETAMINOPHEN 325 MG TABLET (FP) PO ONE (09:30)
[2019-01-17] MEDS ORDERED: DIPHENHYDRAMINE IVPB ONE (09:30)
[2019-01-17] MEDS ORDERED: [UNRECOGNIZED DRUG - OTHER] IVPB ONE (09:30)
[2019-01-17] MEDS ORDERED: SODIUM CHLORIDE IVPB ONE ×2 (10:00→12:30)
[2019-01-17] MEDS ORDERED: TRASTUZUMAB ANNS IVPB ONE (10:00)
[2019-01-17] MEDS ORDERED: PACLITAXEL 126 MG in SODIUM CHLORIDE 250 ML IVPB ONE (10:30)
[2019-01-17] MEDS ORDERED: PACLITAXEL IVPB ONE (12:30)
[2019-01-17 13:24] LABS: BASO % 2.1 % (0-2.0); EOS % 4.9 % (0-4.5); HEMATOCRIT 31.2 % (32.4-45.2); HEMOGLOBIN 10.6 GM/dL (10.7-15.3); LYMPH % 34.2 % (8-40); MCH 32.1 pg (25.7-33.7); MCHC 33.9 g/dl (32.0-36.0); MEAN CELL VOLUME 94.8 fl (80-96); MEAN PLT VOLUME 8.5 fl (7.5-11.1); MONO % 5.9 % (3.8-10.2); NEUT % 52.9 % (42.8-82.8); PLATELET COUNT 249 K/MM3 (134-434); RBC 3.29 M/mm3 (3.60-5.2); RDW 16.4 % (11.6-15.6); WHITE BLOOD COUNT 4.2 K/mm3 (4.0-10.0)
[2019-01-17 13:42] LABS: ALBUMIN 3.2 g/dl (3.4-5.0); BILIRUBIN,TOTAL 0.2 mg/dL (0.2-1); BLOOD UREA NITROGEN 16.5 mg/dL (7-18); CALCIUM 8.4 mg/dL (8.5-10.1); CREATININE 0.7 mg/dL (0.55-1.3); MAGNESIUM 1.8 mg/dL (1.8-2.4); POTASSIUM 3.9 mmol/L (3.5-5.1); TOT PROT 5.9 g/dl (6.4-8.2)
[2019-01-17 14:16] LABS: ANISOCYTOSIS 1+; MACROCYTOSIS 1+; PLATELET ESTIMATE NORMAL
[2019-01-17 16:39] VITALS: PULSE 81; TEMP 98.2
[2019-01-17 16:40] VITALS: BP 124/67
== END 2019-01-17 16:30 | disposition home or self-care (01) ==
LOC: JONCCHEMO 07:10 → J7W 11:52 → JONCCHEMO 16:30
PROVIDERS: ATTEND Internal Medicine Hematology & Oncology
PROC: 3E04305 Introduction of Other Antineoplastic into Central Vein, Percutaneous Approach (ICD-10-PCS; principal; 2019-01-17)
PROC: 3E043GC Introduction of Other Therapeutic Substance into Central Vein, Percutaneous Approach (ICD-10-PCS; 2019-01-17)
DX: Z51.11 Encounter for antineoplastic chemotherapy (principal); C50.919 Malignant neoplasm of unspecified site of unspecified female breast; M81.0 Age-related osteoporosis without current pathological fracture
CPT/HCPCS: 36415; 80053; 83735; 85025; 96367; 96413; 96417; J2405; Q5117

== ENCOUNTER 2019-01-24 07:09 | Day surgery (SDC) | payer OTHER, MEDICARE ==
[2019-01-24] MEDS ORDERED: [UNRECOGNIZED DRUG - OTHER] IVPB ONE (10:00)
[2019-01-24] MEDS ORDERED: DEXAMETHASONE SODIUM PHOSPHATE IVPB ONE (10:00)
[2019-01-24] MEDS ORDERED: DIPHENHYDRAMINE IVPB ONE (10:00)
[2019-01-24] MEDS ORDERED: FAMOTIDINE 20 MG/50 ML IVPB 20 MG/50 ML MG IVPB ONE (10:00)
[2019-01-24] MEDS ORDERED: ACETAMINOPHEN 325 MG TABLET (FP) PO ONE (10:00)
[2019-01-24] MEDS ORDERED: TRASTUZUMAB ANNS IVPB ONE (10:30)
[2019-01-24] MEDS ORDERED: SODIUM CHLORIDE IVPB ONE (10:30)
[2019-01-24] MEDS ORDERED: PACLITAXEL 96 MG in SODIUM CHLORIDE 250 ML IVPB ONE (11:00)
[2019-01-24 11:58] LABS: BASO % 2.1 % (0-2.0); EOS % 4.3 % (0-4.5); HEMATOCRIT 32.6 % (32.4-45.2); HEMOGLOBIN 10.8 GM/dL (10.7-15.3); LYMPH % 30.8 % (8-40); MCH 31.6 pg (25.7-33.7); MCHC 32.9 g/dl (32.0-36.0); MEAN PLT VOLUME 8.4 fl (7.5-11.1); MONO % 7.2 % (3.8-10.2); NEUT % 55.6 % (42.8-82.8); PLATELET COUNT 253 K/MM3 (134-434); RDW 16.8 % (11.6-15.6); WHITE BLOOD COUNT 5.1 K/mm3 (4.0-10.0)
[2019-01-24 12:22] LABS: ALBUMIN 3.1 g/dl (3.4-5.0); BILIRUBIN,TOTAL 0.3 mg/dL (0.2-1); BLOOD UREA NITROGEN 16.2 mg/dL (7-18); CALCIUM 8.6 mg/dL (8.5-10.1); CREATININE 0.6 mg/dL (0.55-1.3); MAGNESIUM 2.1 mg/dL (1.8-2.4); POTASSIUM 4.1 mmol/L (3.5-5.1); TOT PROT 5.8 g/dl (6.4-8.2)
[2019-01-24 12:37] LABS: ANISOCYTOSIS 1+; MACROCYTOSIS 1+; PLATELET ESTIMATE NORMAL
[2019-01-24 13:28] VITALS: TEMP 97.8
[2019-01-24] MEDS ORDERED: PORTA CATH FLUSH 10 ML IVPUSH ONE (13:29)
[2019-01-24 16:36] VITALS: BP 113/62; PULSE 80
== END 2019-01-24 16:00 | disposition home or self-care (01) ==
LOC: JONCCHEMO 07:09 → J7W 10:58 → JONCCHEMO 16:00
PROVIDERS: ATTEND Internal Medicine Hematology & Oncology
PROC: 3E04305 Introduction of Other Antineoplastic into Central Vein, Percutaneous Approach (ICD-10-PCS; principal; 2019-01-24)
PROC: 3E043GC Introduction of Other Therapeutic Substance into Central Vein, Percutaneous Approach (ICD-10-PCS; 2019-01-24)
DX: Z51.11 Encounter for antineoplastic chemotherapy (principal)
CPT/HCPCS: 36415; 80053; 83735; 85025; 96367; 96413; 96417; Q5117

== ENCOUNTER 2019-01-31 06:20 | Day surgery (SDC) | payer OTHER, MEDICARE ==
[2019-01-31] MEDS ORDERED: DIPHENHYDRAMINE 50 MG in SODIUM CHLORIDE 50 ML IVPB ONE (10:00)
[2019-01-31] MEDS ORDERED: TRASTUZUMAB-ANNS 360 MG in SODIUM CHLORIDE 250 ML IVPB ONE (10:30)
[2019-01-31 13:12] LABS: HEMATOCRIT 35.1 % (32.4-45.2); HEMOGLOBIN 11.4 GM/dL (10.7-15.3); LYMPH % 30.3 % (8-40); MCH 31.3 pg (25.7-33.7); MCHC 32.4 g/dl (32.0-36.0); MEAN CELL VOLUME 96.5 fl (80-96); MEAN PLT VOLUME 8.3 fl (7.5-11.1); MONO % 6.9 % (3.8-10.2); NEUT % 56.8 % (42.8-82.8); PLATELET COUNT 260 K/MM3 (134-434); RBC 3.64 M/mm3 (3.60-5.2); RDW 17.1 % (11.6-15.6); WHITE BLOOD COUNT 6.7 K/mm3 (4.0-10.0)
[2019-01-31 13:37] LABS: ALBUMIN 3.2 g/dl (3.4-5.0); BILIRUBIN,TOTAL 0.2 mg/dL (0.2-1); CALCIUM 8.9 mg/dL (8.5-10.1); CREATININE 0.6 mg/dL (0.55-1.3); MAGNESIUM 2.1 mg/dL (1.8-2.4); POTASSIUM 4.2 mmol/L (3.5-5.1); TOT PROT 6.1 g/dl (6.4-8.2)
[2019-01-31 13:43] LABS: ANISOCYTOSIS 0; MACROCYTOSIS 0; PLATELET ESTIMATE NORMAL
[2019-01-31] MEDS: ACETAMINOPHEN 325 MG TABLET (FP) PO ONE ×2 (15:01→15:03)
[2019-01-31 17:27] VITALS: TEMP 98.1
[2019-01-31 17:28] VITALS: BP 129/74; PULSE 80
== END 2019-01-31 16:50 | disposition home or self-care (01) ==
LOC: JONCCHEMO 06:20 → J7W 12:10 → JONCCHEMO 16:50
PROVIDERS: ATTEND Internal Medicine Hematology & Oncology
DX: Z51.11 Encounter for antineoplastic chemotherapy (principal); M81.0 Age-related osteoporosis without current pathological fracture
CPT/HCPCS: 36415; 80053; 83735; 85025; 96375; 96413; Q5117

== ENCOUNTER 2019-02-22 07:11 | Day surgery (SDC) | payer OTHER, MEDICARE ==
[2019-02-22] MEDS ORDERED: DIPHENHYDRAMINE 50 MG in SODIUM CHLORIDE 50 ML IVPB ONE (10:00)
[2019-02-22] MEDS ORDERED: ACETAMINOPHEN 325 MG TABLET (FP) PO ONE (10:00)
[2019-02-22] MEDS ORDERED: TRASTUZUMAB-ANNS 360 MG in SODIUM CHLORIDE 250 ML IVPB ONE (10:30)
[2019-02-22 12:51] LABS: BASO % 0.8 % (0-2.0); EOS % 18.3 % (0-4.5); HEMOGLOBIN 12.4 GM/dL (10.7-15.3); LYMPH % 30.2 % (8-40); MCH 32.1 pg (25.7-33.7); MCHC 33.5 g/dl (32.0-36.0); MEAN CELL VOLUME 95.9 fl (80-96); MEAN PLT VOLUME 8.8 fl (7.5-11.1); MONO % 5.6 % (3.8-10.2); NEUT % 45.1 % (42.8-82.8); PLATELET COUNT 223 K/MM3 (134-434); RBC 3.86 M/mm3 (3.60-5.2); RDW 15.3 % (11.6-15.6); WHITE BLOOD COUNT 10.6 K/mm3 (4.0-10.0)
[2019-02-22 13:14] LABS: ALBUMIN 3.6 g/dl (3.4-5.0); BILIRUBIN,TOTAL 0.3 mg/dL (0.2-1); BLOOD UREA NITROGEN 11.8 mg/dL (7-18); CALCIUM 9.1 mg/dL (8.5-10.1); CREATININE 0.7 mg/dL (0.55-1.3); MAGNESIUM 2.2 mg/dL (1.8-2.4); POTASSIUM 4.2 mmol/L (3.5-5.1); TOT PROT 6.3 g/dl (6.4-8.2)
[2019-02-22] MEDS ORDERED: PORTA CATH FLUSH 10 ML IVPUSH ONE (16:08)
[2019-02-22 16:09] VITALS: BP 107/62; PULSE 68; TEMP 98.2
== END 2019-02-22 15:15 | disposition home or self-care (01) ==
LOC: JONCCHEMO 07:11 → J7W 12:43 → JONCCHEMO 15:15
PROVIDERS: ATTEND Internal Medicine Hematology & Oncology
DX: Z51.11 Encounter for antineoplastic chemotherapy (principal); C50.919 Malignant neoplasm of unspecified site of unspecified female breast; M81.0 Age-related osteoporosis without current pathological fracture
CPT/HCPCS: 36415; 80053; 83735; 85025; 96375; 96413; Q5117

== ENCOUNTER 2019-03-15 05:38 | Day surgery (SDC) | payer OTHER, MEDICARE ==
[2019-03-15] MEDS ORDERED: ACETAMINOPHEN 325 MG TABLET (FP) PO ONE (09:30)
[2019-03-15] MEDS ORDERED: DIPHENHYDRAMINE 50 MG in SODIUM CHLORIDE 50 ML IVPB ONE (09:30)
[2019-03-15] MEDS ORDERED: TRASTUZUMAB-ANNS 360 MG in SODIUM CHLORIDE 250 ML IVPB ONE (10:00)
[2019-03-15 13:57] LABS: BASO % 0.6 % (0-2.0); EOS % 10.6 % (0-4.5); HEMATOCRIT 37.3 % (32.4-45.2); HEMOGLOBIN 12.1 GM/dL (10.7-15.3); LYMPH % 31.1 % (8-40); MCHC 32.4 g/dl (32.0-36.0); MEAN CELL VOLUME 95.7 fl (80-96); MEAN PLT VOLUME 9.1 fl (7.5-11.1); MONO % 6.5 % (3.8-10.2); NEUT % 51.2 % (42.8-82.8); PLATELET COUNT 193 K/MM3 (134-434); RDW 14.2 % (11.6-15.6); WHITE BLOOD COUNT 6.5 K/mm3 (4.0-10.0)
[2019-03-15] MEDS ORDERED: LIDOCAINE 2.5%/PRILOCAINE 2.5% (5 Gram/TUBE) TP ONE (14:00)
[2019-03-15 14:25] LABS: ALBUMIN 3.4 g/dl (3.4-5.0); BILIRUBIN,TOTAL 0.2 mg/dL (0.2-1); BLOOD UREA NITROGEN 16.5 mg/dL (7-18); CALCIUM 8.9 mg/dL (8.5-10.1); CREATININE 0.7 mg/dL (0.55-1.3); MAGNESIUM 1.9 mg/dL (1.8-2.4); POTASSIUM 4.2 mmol/L (3.5-5.1); TOT PROT 6.5 g/dl (6.4-8.2)
[2019-03-15 15:15] VITALS: TEMP 97.6
[2019-03-15 16:29] VITALS: BP 112/67; PULSE 71
== END 2019-03-15 16:29 | disposition home or self-care (01) ==
LOC: JONCCHEMO 05:38 → J7W 12:55 → JONCCHEMO 16:29
PROVIDERS: ATTEND Internal Medicine Hematology & Oncology
PROC: 3E04305 Introduction of Other Antineoplastic into Central Vein, Percutaneous Approach (ICD-10-PCS; principal; 2019-03-15)
PROC: 3E043GC Introduction of Other Therapeutic Substance into Central Vein, Percutaneous Approach (ICD-10-PCS; 2019-03-15)
DX: Z51.11 Encounter for antineoplastic chemotherapy (principal); C50.919 Malignant neoplasm of unspecified site of unspecified female breast; M81.0 Age-related osteoporosis without current pathological fracture
CPT/HCPCS: 36415; 80053; 83735; 85025; 96375; 96413; Q5117

== ENCOUNTER 2019-04-05 05:36 | Day surgery (SDC) | payer OTHER, MEDICARE ==
[~2019-04-05 05:36] MED LIST changes: -BUPIVACAINE HCL/PF 0.25% (2.5MG/ML) 10 ML VIAL IJ ONE; +TRASTUZUMAB-ANNS 360 MG in SODIUM CHLORIDE 250 ML IVPB ONE
[2019-04-05] MEDS ORDERED: DIPHENHYDRAMINE 50 MG in SODIUM CHLORIDE 50 ML IVPB ONE (10:00)
[2019-04-05] MEDS ORDERED: ACETAMINOPHEN 325 MG TABLET (FP) PO ONE (10:00)
[2019-04-05] MEDS ORDERED: TRASTUZUMAB-ANNS 360 MG in SODIUM CHLORIDE 250 ML IVPB ONE (10:30)
[2019-04-05 11:32] LABS: BASO % 0.8 % (0-2.0); EOS % 6.6 % (0-4.5); HEMATOCRIT 36.6 % (32.4-45.2); HEMOGLOBIN 12.3 GM/dL (10.7-15.3); LYMPH % 20.3 % (8-40); MCH 31.5 pg (25.7-33.7); MCHC 33.6 g/dl (32.0-36.0); MEAN CELL VOLUME 93.6 fl (80-96); MEAN PLT VOLUME 8.5 fl (7.5-11.1); MONO % 6.7 % (3.8-10.2); NEUT % 65.6 % (42.8-82.8); PLATELET COUNT 150 K/MM3 (134-434); RBC 3.91 M/mm3 (3.60-5.2); RDW 13.5 % (11.6-15.6); WHITE BLOOD COUNT 5.9 K/mm3 (4.0-10.0)
[2019-04-05 11:42] VITALS: TEMP 98.2
[2019-04-05 12:06] LABS: ALBUMIN 3.5 g/dl (3.4-5.0); BILIRUBIN,TOTAL 0.3 mg/dL (0.2-1); BLOOD UREA NITROGEN 20.2 mg/dL (7-18); CALCIUM 9.2 mg/dL (8.5-10.1); CREATININE 0.7 mg/dL (0.55-1.3); POTASSIUM 4.1 mmol/L (3.5-5.1); TOT PROT 6.4 g/dl (6.4-8.2)
[2019-04-05 13:55] VITALS: BP 118/52; PULSE 68
[2019-04-05] MEDS ORDERED: PORTA CATH FLUSH 10 ML IVPUSH ONE (14:00)
== END 2019-04-05 14:00 | disposition home or self-care (01) ==
LOC: JONCCHEMO 05:36 → J7W 11:02 → JONCCHEMO 14:00
PROVIDERS: ATTEND Internal Medicine Hematology & Oncology
PROC: 3E04305 Introduction of Other Antineoplastic into Central Vein, Percutaneous Approach (ICD-10-PCS; principal; 2019-04-05)
PROC: 3E043GC Introduction of Other Therapeutic Substance into Central Vein, Percutaneous Approach (ICD-10-PCS; 2019-04-05)
DX: Z51.11 Encounter for antineoplastic chemotherapy (principal); C50.919 Malignant neoplasm of unspecified site of unspecified female breast; M81.0 Age-related osteoporosis without current pathological fracture
CPT/HCPCS: 36415; 80053; 85025; 96375; 96413; Q5117

== ENCOUNTER 2019-08-07 05:26 | Day surgery (SDC) | payer OTHER, MEDICARE ==
[2019-08-07] MEDS ORDERED: ACETAMINOPHEN 325 MG TABLET (FP) PO ONE (10:00)
[2019-08-07] MEDS ORDERED: DIPHENHYDRAMINE 50 MG in SODIUM CHLORIDE 50 ML IVPB ONE (10:00)
[2019-08-07] MEDS ORDERED: TRASTUZUMAB-ANNS 360 MG in SODIUM CHLORIDE 250 ML IVPB ONE (10:30)
[2019-08-07 12:08] LABS: BASO % 0.8 % (0-2.0); EOS % 8.1 % (0-4.5); HEMATOCRIT 37.6 % (32.4-45.2); HEMOGLOBIN 12.3 GM/dL (10.7-15.3); LYMPH % 27.3 % (8-40); MCH 30.4 pg (25.7-33.7); MCHC 32.8 g/dl (32.0-36.0); MEAN CELL VOLUME 92.5 fl (80-96); MEAN PLT VOLUME 8.7 fl (7.5-11.1); MONO % 5.7 % (3.8-10.2); NEUT % 58.1 % (42.8-82.8); PLATELET COUNT 223 K/MM3 (134-434); RBC 4.06 M/mm3 (3.60-5.2); RDW 15.6 % (11.6-15.6); WHITE BLOOD COUNT 5.8 K/mm3 (4.0-10.0)
[2019-08-07 12:38] LABS: ALBUMIN 3.6 g/dl (3.4-5.0); BILIRUBIN,DIRECT 0.1 mg/dL (0.0-0.2); BILIRUBIN,TOTAL 0.4 mg/dL (0.2-1); BLOOD UREA NITROGEN 18.2 mg/dL (7-18); CALCIUM 8.9 mg/dL (8.5-10.1); MAGNESIUM 2.3 mg/dL (1.8-2.4); POTASSIUM 4.6 mmol/L (3.5-5.1); TOT PROT 6.5 g/dl (6.4-8.2)
[2019-08-07 12:39] LABS: CREATININE 0.7 mg/dL (0.55-1.3)
[2019-08-07 17:02] VITALS: BP 102/63; TEMP 98.2
[2019-08-07 17:19] VITALS: PULSE 66
[2019-08-07] MEDS ORDERED: PORTA CATH FLUSH 10 ML IVPUSH ONE (17:19)
== END 2019-08-07 14:00 | disposition home or self-care (01) ==
LOC: JONCCHEMO 05:26
PROVIDERS: ATTEND Internal Medicine Hematology & Oncology
PROC: 3E04305 Introduction of Other Antineoplastic into Central Vein, Percutaneous Approach (ICD-10-PCS; principal; 2019-08-07)
PROC: 3E043GC Introduction of Other Therapeutic Substance into Central Vein, Percutaneous Approach (ICD-10-PCS; 2019-08-07)
DX: Z51.11 Encounter for antineoplastic chemotherapy (principal); C50.211 Malignant neoplasm of upper-inner quadrant of right female breast; Z17.0 Estrogen receptor positive status [ER+]
CPT/HCPCS: 36415; 80048; 80076; 83735; 85025; 96375; 96413; Q5117

== ENCOUNTER 2019-08-28 07:13 | Day surgery (SDC) | payer OTHER, MEDICARE ==
[2019-08-28] MEDS ORDERED: ACETAMINOPHEN 325 MG TABLET (FP) PO ONE (11:30)
[2019-08-28] MEDS ORDERED: DIPHENHYDRAMINE 50 MG in SODIUM CHLORIDE 50 ML IVPB ONE (11:30)
[2019-08-28 11:50] LABS: BASO % 0.9 % (0-2.0); EOS % 9.3 % (0-4.5); HEMATOCRIT 39.7 % (32.4-45.2); HEMOGLOBIN 12.9 GM/dL (10.7-15.3); LYMPH % 30.8 % (8-40); MCH 30.3 pg (25.7-33.7); MCHC 32.6 g/dl (32.0-36.0); MEAN CELL VOLUME 93.1 fl (80-96); MEAN PLT VOLUME 9.3 fl (7.5-11.1); MONO % 7.2 % (3.8-10.2); NEUT % 51.8 % (42.8-82.8); PLATELET COUNT 200 K/MM3 (134-434); RBC 4.26 M/mm3 (3.60-5.2); RDW 14.7 % (11.6-15.6); WHITE BLOOD COUNT 6.5 K/mm3 (4.0-10.0)
[2019-08-28] MEDS ORDERED: TRASTUZUMAB-ANNS 360 MG in SODIUM CHLORIDE 250 ML IVPB ONE (12:00)
[2019-08-28 12:22] LABS: ALBUMIN 3.7 g/dl (3.4-5.0); BILIRUBIN,TOTAL 0.3 mg/dL (0.2-1); BLOOD UREA NITROGEN 17.6 mg/dL (7-18); CALCIUM 8.9 mg/dL (8.5-10.1); CREATININE 0.8 mg/dL (0.55-1.3); POTASSIUM 4.3 mmol/L (3.5-5.1); TOT PROT 6.8 g/dl (6.4-8.2)
[2019-08-28 17:46] VITALS: BP 125/62; PULSE 80; TEMP 98.2
[2019-08-28] MEDS ORDERED: PORTA CATH FLUSH 10 ML IVPUSH ONE (17:46)
== END 2019-08-28 13:45 | disposition home or self-care (01) ==
LOC: JONCCHEMO 07:13
PROVIDERS: ATTEND Internal Medicine Hematology & Oncology
DX: Z51.11 Encounter for antineoplastic chemotherapy (principal); C50.211 Malignant neoplasm of upper-inner quadrant of right female breast; Z17.0 Estrogen receptor positive status [ER+]
CPT/HCPCS: 36415; 80053; 82306; 85025; 96367; 96413; Q5117

== ENCOUNTER 2019-10-09 07:11 | Day surgery (SDC) | payer OTHER, MEDICARE ==
[2019-10-09] MEDS ORDERED: ACETAMINOPHEN 325 MG TABLET (FP) PO ONE (09:30)
[2019-10-09] MEDS ORDERED: DIPHENHYDRAMINE 25 MG in SODIUM CHLORIDE 50 ML IVPB ONE (09:30)
[2019-10-09] MEDS ORDERED: TRASTUZUMAB-ANNS 360 MG in SODIUM CHLORIDE 250 ML IVPB ONE (10:00)
[2019-10-09 12:17] LABS: BASO % 0.5 % (0-2.0); EOS % 4.1 % (0-4.5); LYMPH % 30.2 % (8-40); MCH 30.6 pg (25.7-33.7); MCHC 32.5 g/dl (32.0-36.0); MEAN PLT VOLUME 9.2 fl (7.5-11.1); MONO % 6.2 % (3.8-10.2); PLATELET COUNT 195 K/MM3 (134-434); RBC 4.25 M/mm3 (3.60-5.2); RDW 13.7 % (11.6-15.6); WHITE BLOOD COUNT 5.7 K/mm3 (4.0-10.0)
[2019-10-09 12:52] LABS: ALBUMIN 3.7 g/dl (3.4-5.0); BILIRUBIN,TOTAL 0.3 mg/dL (0.2-1); BLOOD UREA NITROGEN 12.3 mg/dL (7-18); CREATININE 0.7 mg/dL (0.55-1.3); POTASSIUM 4.2 mmol/L (3.5-5.1); TOT PROT 6.6 g/dl (6.4-8.2)
[2019-10-09 17:06] VITALS: TEMP 97.9
[2019-10-09 17:14] VITALS: BP 119/54; PULSE 77
== END 2019-10-09 14:45 | disposition home or self-care (01) ==
LOC: JONCCHEMO 07:11
PROVIDERS: ATTEND Internal Medicine Hematology & Oncology
PROC: 3E04305 Introduction of Other Antineoplastic into Central Vein, Percutaneous Approach (ICD-10-PCS; principal; 2019-10-09)
PROC: 3E043GC Introduction of Other Therapeutic Substance into Central Vein, Percutaneous Approach (ICD-10-PCS; 2019-10-09)
DX: Z51.11 Encounter for antineoplastic chemotherapy (principal); C50.211 Malignant neoplasm of upper-inner quadrant of right female breast; Z17.0 Estrogen receptor positive status [ER+]
CPT/HCPCS: 36415; 80053; 82306; 85025; 96375; 96413; Q5117

== ENCOUNTER → 2019-10-22 | Day surgery (SDC) | payer OTHER, MEDICARE ==
--- OUTSIDE RECORDS SUMMARY | 2019-10-22 11:05 | XMS ---
:1950 Author Organization [facility] Support Name Relationship Address Phone [employer] Unavailable [address] [place] [address] WILLY LUNSFORD FAMILY/OTHER [address] [phone] [place] [address] Re-disclosure Warning The records that you are about to access may contain information from federally- assisted alcohol or drug abuse programs. If such information is present, then the following federally mandated warning applies: This information has been disclosed to you from records protected by federal confidentiality rules (42 CFR part 2). The federal rules prohibit you from making any further disclosure of this information unless further disclosure is expressly permitted by the written consent of the person to whom it pertains or as otherwise permitted by 42 CFR part 2. A general authorization for the release of medical or other information is NOT sufficient for this purpose. The Federal rules restrict any use of the information to criminally investigate or prosecute any alcohol or drug abuse patient.The records that you are about to access may contain highly sensitive health information, the redisclosure of which is protected by Article 27-F of the [facility] Public Health law. If you continue you may haveaccess to information: Regarding HIV / AIDS; Provided by facilities licensed or operated by the [facility] Office of Mental Health; or Provided by the [facility] Office for People With Developmental Disabilities. If such information is present, then the following [facility] mandated warning applies: This information has been disclosed to you from confidential records which are protected by state law. State law prohibits you from making any further disclosure of this information without the specific written consent of the person to whom it pertains, or as otherwise permitted by law. Any unauthorized further disclosure in violation of state law may result in a fine or long-term sentence or both. A general authorization for the release of medical or other information is NOT sufficient authorization for further disclosure. Insurance Providers Payer name Policy type Policy ID Covered Covered libertarian's Policy P darien / Coverage libertarian ID relationship to Renee Inf ormation type renee [facility] [id number] SP [id number] [employer] MEDICARE [id number] SP [id number] [facility] [id number] SP [id number] [employer] MED[employer]ARE [id number] SP [id number]
== END | disposition home or self-care (01) ==
LOC: JRADIR 10:44
PROVIDERS: ATTEND Internal Medicine Hematology & Oncology
PROC: 0JPT0WZ Removal of Totally Implantable Vascular Access Device from Trunk Subcutaneous Tissue and Fascia, Open Approach (ICD-10-PCS; principal; 2019-10-22)
DX: Z45.2 Encounter for adjustment and management of vascular access device (principal)
CPT/HCPCS: 36590

== ENCOUNTER 2019-12-20 07:11 | Day surgery (SDC) | payer OTHER, MEDICARE ==
[2019-12-20] MEDS ORDERED: DENOSUMAB 60 MG/ML DISP.SYRIN SQ ONE (10:00)
[2019-12-20 10:59] LABS: BASO % 0.6 % (0-2.0); EOS % 4.4 % (0-4.5); HEMATOCRIT 41.6 % (32.4-45.2); HEMOGLOBIN 13.8 GM/dL (10.7-15.3); LYMPH % 29.6 % (8-40); MCHC 33.3 g/dl (32.0-36.0); MEAN CELL VOLUME 93.1 fl (80-96); MEAN PLT VOLUME 9.2 fl (7.5-11.1); MONO % 5.9 % (3.8-10.2); NEUT % 59.5 % (42.8-82.8); PLATELET COUNT 210 K/MM3 (134-434); RBC 4.47 M/mm3 (3.60-5.2); WHITE BLOOD COUNT 6.7 K/mm3 (4.0-10.0)
[2019-12-20 11:19] LABS: POTASSIUM 4.8 mmol/L (3.5-5.1)
[2019-12-20 11:21] LABS: ALBUMIN 3.8 g/dl (3.4-5.0); BLOOD UREA NITROGEN 19.5 mg/dL (7-18); CALCIUM 9.1 mg/dL (8.5-10.1)
[2019-12-20 11:24] LABS: CREATININE 0.8 mg/dL (0.55-1.3)
[2019-12-20 11:26] LABS: BILIRUBIN,TOTAL 0.4 mg/dL (0.2-1); TOT PROT 7.1 g/dl (6.4-8.2)
[2019-12-20 11:27] LABS: IRON SERUM 96 ug/dL (50-175); TOTAL IRON BINDING CAPACITY 305 ug/dL (250-450)
[2019-12-20 15:26] VITALS: BP 127/66; PULSE 71; TEMP 97.4
== END 2019-12-20 11:30 | disposition home or self-care (01) ==
LOC: JONCCHEMO 07:11
PROVIDERS: ATTEND Internal Medicine Hematology & Oncology
DX: Z51.11 Encounter for antineoplastic chemotherapy (principal); C50.211 Malignant neoplasm of upper-inner quadrant of right female breast; Z17.0 Estrogen receptor positive status [ER+]
CPT/HCPCS: 36415; 80053; 82306; 82607; 82728; 83540; 83550; 85025; 96402; J0897

== ENCOUNTER 2020-06-26 07:32 | Day surgery (SDC) | payer OTHER, MEDICARE ==
[2020-06-26] MEDS ORDERED: DENOSUMAB 60 MG/ML DISP.SYRIN SQ ONE (10:00)
[2020-06-26 11:37] LABS: BASO % 0.9 % (0-2.0); EOS % 7.1 % (0-4.5); HEMATOCRIT 39.9 % (32.4-45.2); HEMOGLOBIN 13.1 GM/dL (10.7-15.3); LYMPH % 37.4 % (8-40); MCH 31.1 pg (25.7-33.7); MEAN CELL VOLUME 94.3 fl (80-96); MEAN PLT VOLUME 9.3 fl (7.5-11.1); MONO % 7.5 % (3.8-10.2); NEUT % 47.1 % (42.8-82.8); PLATELET COUNT 196 K/MM3 (134-434); RBC 4.23 M/mm3 (3.60-5.2); RDW 14.2 % (11.6-15.6); WHITE BLOOD COUNT 4.8 K/mm3 (4.0-10.0)
[2020-06-26 11:56] LABS: CALCIUM 8.7 mg/dL (8.5-10.1)
[2020-06-26 11:57] LABS: ALBUMIN 3.7 g/dl (3.4-5.0); BLOOD UREA NITROGEN 13.3 mg/dL (7-18)
[2020-06-26 12:00] LABS: CREATININE 0.7 mg/dL (0.55-1.3)
[2020-06-26 12:01] LABS: BILIRUBIN,TOTAL 0.4 mg/dL (0.2-1); TOT PROT 6.4 g/dl (6.4-8.2)
[2020-06-26 17:30] VITALS: BP 104/65; PULSE 65; TEMP 97.4
== END 2020-06-26 12:35 | disposition home or self-care (01) ==
LOC: JONCCHEMO 07:32
PROVIDERS: ATTEND Internal Medicine Hematology & Oncology
PROC: 3E013GC Introduction of Other Therapeutic Substance into Subcutaneous Tissue, Percutaneous Approach (ICD-10-PCS; principal; 2020-06-26)
DX: C50.211 Malignant neoplasm of upper-inner quadrant of right female breast (principal); M81.0 Age-related osteoporosis without current pathological fracture
CPT/HCPCS: 36415; 80053; 85025; 96372; J0897

== ENCOUNTER 2020-12-25 07:30 | Day surgery (SDC) | payer OTHER, MEDICARE ==
[2020-12-25] MEDS ORDERED: DENOSUMAB 60 MG/ML DISP.SYRIN SQ ONE (10:00)
[2020-12-25 11:48] LABS: EOS % 7.5 % (0-4.5); HEMATOCRIT 41.2 % (32.4-45.2); HEMOGLOBIN 13.6 GM/dL (10.7-15.3); LYMPH % 26.8 % (8-40); MCH 30.9 pg (25.7-33.7); MEAN CELL VOLUME 93.8 fl (80-96); MEAN PLT VOLUME 9.2 fl (7.5-11.1); MONO % 5.9 % (3.8-10.2); NEUT % 58.8 % (42.8-82.8); PLATELET COUNT 230 10^3/uL (134-434); RBC 4.39 M/mm3 (3.60-5.2); RDW 14.2 % (11.6-15.6); WHITE BLOOD COUNT 6.2 K/mm3 (4.0-10.0)
[2020-12-25 12:10] LABS: CALCIUM 8.8 mg/dL (8.5-10.1)
[2020-12-25 12:11] LABS: ALBUMIN 3.9 g/dl (3.4-5.0); BLOOD UREA NITROGEN 19.1 mg/dL (7-18)
[2020-12-25 12:15] LABS: CREATININE 0.7 mg/dL (0.55-1.3)
[2020-12-25 12:16] LABS: BILIRUBIN,TOTAL 0.4 mg/dL (0.2-1); TOT PROT 6.9 g/dl (6.4-8.2)
[2020-12-25 15:45] VITALS: BP 108/65; PULSE 73; TEMP 97.9
== END 2020-12-25 12:20 | disposition home or self-care (01) ==
LOC: JONCCHEMO 07:30
PROVIDERS: ATTEND Internal Medicine Hematology & Oncology
PROC: 3E013GC Introduction of Other Therapeutic Substance into Subcutaneous Tissue, Percutaneous Approach (ICD-10-PCS; principal; 2020-12-25)
DX: C50.211 Malignant neoplasm of upper-inner quadrant of right female breast (principal); M81.0 Age-related osteoporosis without current pathological fracture; Z17.0 Estrogen receptor positive status [ER+]
CPT/HCPCS: 36415; 80053; 85025; 96372; J0897

== ENCOUNTER 2021-09-10 09:36 | Day surgery (SDC) | payer OTHER ==
[2021-09-10] MEDS ORDERED: DENOSUMAB 60 MG/ML DISP.SYRIN SQ ONE (11:15)
[2021-09-10 16:02] VITALS: BP 102/56; PULSE 61; RESP 18; TEMP 97.4
== END 2021-09-10 12:15 | disposition home or self-care (01) ==
LOC: JONCCHEMO 09:36
PROVIDERS: ATTEND Internal Medicine Hematology & Oncology
DX: Z51.11 Encounter for antineoplastic chemotherapy (principal); C50.211 Malignant neoplasm of upper-inner quadrant of right female breast; M81.0 Age-related osteoporosis without current pathological fracture; Z17.0 Estrogen receptor positive status [ER+]
CPT/HCPCS: 96372; 96401; J0897